=== PATIENT | female | born 1970 | race Two or more races ===

== ENCOUNTER 2020-11-06 06:34 | Day surgery (SDC) | payer OTHER ==
[2020-11-06 07:38] VITALS: TEMP 98.2; BMI 41.9
[2020-11-06] MEDS ORDERED: PROPOFOL 20 ML ONE ×3 (07:50)
[2020-11-06] MEDS ORDERED: LIDOCAINE HCL/PF 2% SDV 5ML VIAL ONE (07:50)
[2020-11-06 09:52] VITALS: BP 110/60; PULSE 62
== END 2020-11-06 09:53 | disposition home or self-care (01) ==
LOC: FASU-ENDO 06:34
PROVIDERS: ATTEND Internal Medicine Gastroenterology
PROC: 0DB98ZX Excision of Duodenum, Via Natural or Artificial Opening Endoscopic, Diagnostic (ICD-10-PCS; 2020-11-06)
PROC: 0DB68ZX Excision of Stomach, Via Natural or Artificial Opening Endoscopic, Diagnostic (ICD-10-PCS; 2020-11-06)
PROC: 0DJD8ZZ Inspection of Lower Intestinal Tract, Via Natural or Artificial Opening Endoscopic (ICD-10-PCS; principal; 2020-11-06 08:21)
DX: Z12.11 Encounter for screening for malignant neoplasm of colon (principal); K57.30 Diverticulosis of large intestine without perforation or abscess without bleeding; K29.50 Unspecified chronic gastritis without bleeding; R12 Heartburn
CPT/HCPCS: 43239; G0121; 88305-TC; 88342-TC